=== PATIENT | male | born 1950 | race Caucasian/White ===

== ENCOUNTER 2025-09-30 23:55 | Inpatient (IN) | payer MEDICARE, MEDICAID ==
[~2025-09-30] VITALS: Ht 152.4 cm; Wt 83.5 kg
[~2025-09-30 23:55] MED LIST: AMLO10TA80 PO; ASPI-1073 PO; ATOR-388 PO; BENA40TA91 PO; CLON0.1T PO; HYDR25TA PO; LEVO50TA8 PO; METF-416 PO; METO-539 PO
[2025-10-01] VITALS (72 sets, daily range): BP systolic 45–135; BP diastolic 36–76; PULSE 61–133; RESP 0–21; TEMP 36–37.8; O2SAT 100
[2025-10-01] MEDS: LORAZEPAM 2MG/ML UD SYRINGE IM NR (00:10)
[2025-10-01] MEDS: MIDAZOLAM HCL 5 MG/ML VIAL IV ONE (00:27)
[2025-10-01] MEDS: MIDAZOLAM HCL 2 MG/2 ML VIAL IV NR (00:29)
[2025-10-01] MEDS: DIPHENHYDRAMINE 50MG/ML VIAL IV ONE (00:31)
[2025-10-01] MEDS: MIDAZOLAM HCL 2 MG/2 ML VIAL IV ONE ×2 (00:44→01:26)
[2025-10-01 00:49] LABS: BASOPHILS % 0.8 % (0.0-2.0); EOSINOPHILS % 1.8 % (0.0-5.0); HEMATOCRIT. 31.6 % (42.0-52.0); HEMOGLOBIN. 10.6 g/dL (14.0-18.0); LYMPHOCYTES % 39.0 % (20.0-50.0); MEAN PLATELET VOLUME 7.6 fl (7.4-10.4); MONOCYTES % 6.7 % (2.0-8.0); NEUTROPHILS % 51.7 % (40.0-76.0); PLATELET 422 x1000/uL (130-400); RED BLOOD CELL COUNT 3.75 mill/uL (4.7-6.1); RED CELL DISTRIBUTION WIDTH 13.7 % (11.6-14.6)
[2025-10-01 01:05] LABS: INR 1.0
[2025-10-01 01:12] LABS: CREATININE 2.0 mg/dL (0.6-1.3)
[2025-10-01 01:13] LABS: ETHANOL BLOOD < 10 mg/dL (<10); UREA NITROGEN BLOOD 31 mg/dL (9-23)
[2025-10-01 01:14] LABS: ASPARTATE AMINOTRANSFERASE 20 IU/L (<34); BILIRUBIN DIRECT < 0.1 mg/dL (<=3.0); PROTEIN TOTAL 7.1 g/dL (6.0-8.3)
[2025-10-01 01:15] LABS: BILIRUBIN TOTAL 0.2 mg/dL (0.1-1.0)
[2025-10-01] MEDS: HALOPERIDOL LACTATE 5MG/ML VIAL IM ONE (01:26)
[2025-10-01] MEDS ORDERED: DEXMEDETOMIDINE 100 ML IV PRN (01:45)
[2025-10-01] MEDS: DEXMEDETOMIDINE 100 ML IV PRN (02:17)
[2025-10-01] MEDS: ETOMIDATE 2MG/ML 10ML VIAL IV ONE (02:40)
[2025-10-01] MEDS: ROCURONIUM BROMIDE 10MG/ML VIAL 5ML IV ONE (02:41)
[2025-10-01] MEDS ORDERED: FENTANYL 2500MCG/250ML PMX 250 ML IV SCH (02:45)
[2025-10-01] MEDS: SODIUM CHLORIDE 0.9% 1,000 ML IV ONE ×2 (02:46→11:43)
[2025-10-01] MEDS: PROPOFOL 10MG/ML 100ML 100 ML IV SCH (03:02)
[2025-10-01] MEDS: SODIUM CHLORIDE 0.9% (SEPSIS BOLUS) IV ONE (03:05)
[2025-10-01] MEDS: PIPERACILLIN/TAZO 3.375G/50ML 50 ML IV ONE (03:18)
[2025-10-01] MEDS: NICARDIPINE 40MG/200ML PREMIX 200 ML IV PRN (03:25)
[2025-10-01 03:35] LABS: CLARITY URINE CLEAR (CLEAR); COLOR URINE YELLOW (YELLOW); GLUCOSE URINE 2+ (NEGATIVE); KETONES URINE NEGATIVE (NEGATIVE); LEUKOCYTE ESTERASE URINE NEGATIVE (NEGATIVE); NITRITE URINE NEGATIVE (NEGATIVE); OCCULT BLOOD URINE 1+ (NEGATIVE); PH URINE 5.5 (4.5-8.0); PROTEIN URINE 3+ (NEGATIVE); SPECIFIC GRAVITY URINE 1.011 (1.005-1.030); UROBILINOGEN URINE 0.2 E.U./dL (0.2-1.0)
[2025-10-01 03:46] LABS: TROPONIN I HIGH SENSITIVITY 53 ng/L (3.0-53)
[2025-10-01 03:48] LABS: *AMPHETAMINES SCREEN URINE NEGATIVE (NEGATIVE)
[2025-10-01 03:49] LABS: *BARBITURATES SCREEN URINE NEGATIVE (NEGATIVE); *BENZODIAZEPINES SCREEN URINE PRESUMPTIVE POSITIVE (NEGATIVE); *COCAINE SCREEN URINE NEGATIVE (NEGATIVE); METHADONE URINE SCREEN NEGATIVE (NEGATIVE); OPIATES URINE SCREEN NEGATIVE (NEGATIVE)
[2025-10-01 03:50] LABS: CANNABINOID URINE SCREEN NEGATIVE (NEGATIVE); ECSTASY MDMA SCREEN URINE NEGATIVE (NEGATIVE); PHENCYCLIDINE URINE SCREEN NEGATIVE (NEGATIVE)
[2025-10-01 04:03] LABS: BACTERIA URINE TRACE; SQUAMOUS EPITHELIAL CELL URINE RARE /lpf (RARE/1+); WBC URINE 0-2 /hpf (0-2)
[2025-10-01] MEDS: VANCOMYCIN 1G PREMIX 200 ML IV ONE (04:19)
[2025-10-01] MEDS: FENTANYL 2500MCG/250ML PMX 250 ML IV SCH (04:25)
[2025-10-01 04:28] LABS: BG BASE EXCESS -9.0 mmol/L (-2.0-3.0); BG FRACTION INSPIRED OXYGEN 60; BG HCO3 ACT 18.4 mmol/L (21.0-28.0); BG PCO2 45.2 mmHg (35.0-48.0); BG PEEP (cmH2O) 5.0 cmH2O; BG PH 7.228 (7.350-7.450); BG PO2 266.4 mmHg (83.0-108.0); BG SAMPLE SITE LEFT RADIAL; BG TIDAL VOLUME(mL) 475.0 mL; BG TOTAL HEMOGLOBIN 0.0 g/dL (13.5-17.5); BG VENT MODE VENT - AC; BG VENT RATE 16.0 set
[2025-10-01] MEDS ORDERED: ACETAMINOPHEN 325MG TABLET PO PRN (04:30)
[2025-10-01] MEDS ORDERED: DOCUSATE SODIUM 100MG CAPSULE PO PRN (04:30)
[2025-10-01] MEDS ORDERED: FENTANYL 2500MCG/250ML PMX 250 ML IV PRN (04:30)
[2025-10-01] MEDS ORDERED: ONDANSETRON HCL 4MG/2ML INJ IV PRN (04:30)
[2025-10-01] MEDS ORDERED: DEXTROSE 50% WATER 50ML SYRINGE IV PRN ×2 (04:30→13:00)
[2025-10-01] MEDS ORDERED: MAGNESIUM/ALUMINUM HYDROXIDE/SIMETHICONE 30ML UDC PO PRN (04:30)
[2025-10-01] MEDS ORDERED: NICARDIPINE 40MG/200ML PREMIX 200 ML IV PRN (04:30)
[2025-10-01 05:25] LABS: TROPONIN I HIGH SENSITIVITY 238 ng/L (3.0-53)
[2025-10-01] MEDS ORDERED: MIDAZOLAM 100MG/100ML PMX 100 ML IV PRN (05:30)
[2025-10-01] MEDS: BLOOD SUGAR DIAGNOSTIC STRIP TEST SCH ×2 (06:00→17:18)
[2025-10-01] MEDS ORDERED: IOHEXOL-350 100 ML BOTTLE ONE (06:50)
[2025-10-01] MEDS ORDERED: METR-167 MT (06:52)
[2025-10-01] MEDS ORDERED: HYDR25TA78 PO (06:52)
[2025-10-01] MEDS ORDERED: OMEP20CA14 MT (06:52)
[2025-10-01] MEDS ORDERED: VALS160T28 PO (06:52)
[2025-10-01] MEDS ORDERED: EMPA10TA PO (06:52)
[2025-10-01] MEDS ORDERED: BISM262O PO (06:52)
[2025-10-01] MEDS ORDERED: TETR-65 PO (06:52)
[2025-10-01] MEDS: MAGNESIUM 2 G PREMIX 50 ML IV NR (08:14)
[2025-10-01 08:33] LABS: INFLUENZA TYPE A Presumptive Negative (Pres. Neg.); INFLUENZA TYPE B Presumptive Negative (Pres. Neg.); RESPIRATORY SYNCYTIAL VIRUS Not Detected (Not Detectd)
[2025-10-01] MEDS ORDERED: BENZ100C86 MT (08:36)
[2025-10-01] MEDS: LEVETIRACETAM 1000MG PREMIX 100 ML IV SCH (08:55)
[2025-10-01] MEDS: PANTOPRAZOLE SODIUM 40 MG/VIAL IV SCH (08:55)
[2025-10-01] MEDS: ENOXAPARIN 30MG/0.3ML SYR SUBCUT SCH (08:55)
[2025-10-01] MEDS: IPRATROPIUM/ALBUTEROL 0.5-3(2.5)MG/3ML NEB HHN PRN (09:58)
[2025-10-01] MEDS ORDERED: SODIUM CHLORIDE 0.9% 500 ML IV NR ×2 (10:00→11:00)
[2025-10-01 10:22] LABS: BG BASE EXCESS -6.2 mmol/L (-2.0-3.0); BG CARBOXYHEMOGLOBIN 0.3 % (0.5-1.5); BG DEOXYHEMOGLOBIN 0.7 % (0.0-5.0); BG FRACTION INSPIRED OXYGEN 60; BG HCO3 ACT 17.4 mmol/L (21.0-28.0); BG METHEMOGLOBIN 0.3 % (0.5-1.5); BG OXYGEN SATURATION 99.3 % (94.0-98.0); BG OXYHEMOGLOBIN 98.7 % (94.0-98.0); BG PCO2 28.0 mmHg (35.0-48.0); BG PEEP (cmH2O) 5.0 cmH2O; BG PH 7.411 (7.350-7.450); BG PO2 233.0 mmHg (83.0-108.0); BG SAMPLE SITE RIGHT RADIAL; BG TIDAL VOLUME(mL) 475.0 mL; BG TOTAL HEMOGLOBIN 9.6 g/dL (13.5-17.5); BG VENT MODE VENT - AC; BG VENT RATE 16.0 set
[2025-10-01] MEDS: PIPERACILLIN/TAZO 3.375G/50ML 50 ML IV SCH (10:32)
[2025-10-01] MEDS: LEVETIRACETAM 500MG PREMIX 100 ML IV SCH ×2 (10:47→22:01)
[2025-10-01] MEDS: DEXT 5%/0.9% NACL 1,000 ML IV SCH (11:01)
[2025-10-01] MEDS: VANCOMYCIN 500MG/100ML IV SCH (11:11)
[2025-10-01 11:16] LABS: PLATELET 311 x1000/uL (130-400); RED BLOOD CELL COUNT 3.25 mill/uL (4.7-6.1); RED CELL DISTRIBUTION WIDTH 13.9 % (11.6-14.6)
[2025-10-01 11:27] LABS: CREATININE 2.1 mg/dL (0.6-1.3); UREA NITROGEN BLOOD 32.0 mg/dL (9-23)
[2025-10-01 11:43] LABS: TROPONIN I HIGH SENSITIVITY 3173 ng/L (3.0-53)
[2025-10-01] MEDS: INSULIN LISPRO 100 UNITS/ML SUBCUT SCH (13:07)
[2025-10-01 16:12] LABS: CREATINE KINASE MB FRACTION 10.2 ng/mL (0.5-3.6)
[2025-10-01] MEDS: PROPOFOL 10MG/ML 100ML 100 ML IV PRN (16:22)
[2025-10-01 16:43] LABS: FOLIC ACID (FOLATE) SERUM 12.18 ng/mL (>5.38)
[2025-10-01 16:44] LABS: TROPONIN I HIGH SENSITIVITY 4559 ng/L (3.0-53)
[2025-10-01 16:45] LABS: VITAMIN B12 SERUM 257 pg/mL (211-911)
[2025-10-01] MEDS: TETRACYCLINE HCL 250MG CAPSULE PO SCH (21:00)
[2025-10-01] MEDS: METRONIDAZOLE 500MG TABLET PO SCH (21:00)
[2025-10-02] VITALS (104 sets, daily range): BP systolic 87–158; BP diastolic 48–135; PULSE 59–110; RESP 0–31; TEMP 36.4–36.9; O2SAT 94–100
[2025-10-02 05:36] LABS: CREATININE 2.4 mg/dL (0.6-1.3); TRIGLYCERIDE 258.0 mg/dL (0-150); UREA NITROGEN BLOOD 26.0 mg/dL (9-23)
[2025-10-02 05:37] LABS: LDL CHOLESTEROL 100.0 mg/dL (5-100)
[2025-10-02 05:39] LABS: T4 FREE 1.23 ng/dL (0.89-1.76)
[2025-10-02 05:46] LABS: C REACTIVE PROTEIN HIGH SENS 40.87 mg/l (<1.00)
[2025-10-02] MEDS: PROPOFOL 10MG/ML 100ML 100 ML IV PRN (05:58)
[2025-10-02] MEDS ORDERED: VANCOMYCIN 750MG/150ML (BAXTER) IV SCH (06:00)
[2025-10-02 06:05] LABS: BASOPHILS % 0.5 % (0.0-2.0); EOSINOPHILS % 0.4 % (0.0-5.0); HEMATOCRIT. 27.8 % (42.0-52.0); HEMOGLOBIN. 9.3 g/dL (14.0-18.0); LYMPHOCYTES % 12.8 % (20.0-50.0); MEAN PLATELET VOLUME 7.8 fl (7.4-10.4); MONOCYTES % 9.3 % (2.0-8.0); NEUTROPHILS % 77.0 % (40.0-76.0); PLATELET 310 x1000/uL (130-400); RED BLOOD CELL COUNT 3.16 mill/uL (4.7-6.1); RED CELL DISTRIBUTION WIDTH 14.2 % (11.6-14.6); TROPONIN I HIGH SENSITIVITY 2693 ng/L (3.0-53)
[2025-10-02 08:38] LABS: BG BASE EXCESS -7.0 mmol/L (-2.0-3.0); BG CARBOXYHEMOGLOBIN 0.3 % (0.5-1.5); BG DEOXYHEMOGLOBIN 1.0 % (0.0-5.0); BG FRACTION INSPIRED OXYGEN 50; BG HCO3 ACT 18.2 mmol/L (21.0-28.0); BG METHEMOGLOBIN 0.3 % (0.5-1.5); BG OXYGEN SATURATION 99.0 % (94.0-98.0); BG OXYHEMOGLOBIN 98.4 % (94.0-98.0); BG PCO2 35.5 mmHg (35.0-48.0); BG PEEP (cmH2O) 5.0 cmH2O; BG PH 7.328 (7.350-7.450); BG PO2 222.8 mmHg (83.0-108.0); BG SAMPLE SITE RIGHT RADIAL; BG TIDAL VOLUME(mL) 450.0 mL; BG TOTAL HEMOGLOBIN 10.1 g/dL (13.5-17.5); BG VENT MODE VENT - AC; BG VENT RATE 16.0 set
[2025-10-02 09:49] LABS: ERYTHROCYTE SEDIMENTATION RATE 25 mm/hr (0-20)
[2025-10-02 09:50] LABS: PHOSPHORUS 4.1 mg/dL (2.5-4.9)
[2025-10-02] MEDS ORDERED: VANCOMYCIN 750MG PREMIX 150 ML IV SCH (12:00)
[2025-10-02 13:13] LABS: BG BASE EXCESS -6.7 mmol/L (-2.0-3.0); BG CARBOXYHEMOGLOBIN 0.8 % (0.5-1.5); BG DEOXYHEMOGLOBIN 1.5 % (0.0-5.0); BG FRACTION INSPIRED OXYGEN 30; BG HCO3 ACT 18.6 mmol/L (21.0-28.0); BG METHEMOGLOBIN 0.3 % (0.5-1.5); BG OXYGEN SATURATION 98.5 % (94.0-98.0); BG OXYHEMOGLOBIN 97.4 % (94.0-98.0); BG PCO2 36.4 mmHg (35.0-48.0); BG PEEP (cmH2O) 5.0 cmH2O; BG PH 7.327 (7.350-7.450); BG PO2 122.1 mmHg (83.0-108.0); BG SAMPLE SITE RIGHT RADIAL; BG TOTAL HEMOGLOBIN 10.3 g/dL (13.5-17.5); BG VENT MODE VENT - CPAP
[2025-10-02] MEDS: LOSARTAN 25 MG TABLET PO SCH (14:44)
[2025-10-02] MEDS: ASPIRIN 81MG TABLET PO SCH (16:55)
[2025-10-02] MEDS: ACETAMINOPHEN 325MG TABLET PO PRN (16:56)
[2025-10-02] MEDS ORDERED: PIPERACILLIN/TAZO 3.375G/50ML 50 ML IV SCH (21:00)
[2025-10-02] MEDS: METOPROLOL TARTRATE 25MG TABLET PO SCH (21:18)
[2025-10-03] VITALS (24 sets, daily range): BP systolic 109–191; BP diastolic 50–83; PULSE 59–95; RESP 11–25; TEMP 36.3–37.1; O2SAT 96–100
[2025-10-03] MEDS: CLONIDINE 0.1MG TABLET PO PRN (00:51)
[2025-10-03 05:52] LABS: PLATELET 314 x1000/uL (130-400); RED BLOOD CELL COUNT 3.17 mill/uL (4.7-6.1); RED CELL DISTRIBUTION WIDTH 14.2 % (11.6-14.6)
[2025-10-03 07:03] LABS: CREATININE 2.3 mg/dL (0.6-1.3)
[2025-10-03 07:04] LABS: TRIGLYCERIDE 156 mg/dL (0-150); UREA NITROGEN BLOOD 28 mg/dL (9-23)
[2025-10-03 07:06] LABS: PHOSPHORUS 4.1 mg/dL (2.5-4.9)
[2025-10-03] MEDS: LOSARTAN 50 MG TABLET PO SCH (09:22)
[2025-10-03] MEDS: METOPROLOL TARTRATE 50MG TABLET PO SCH (09:23)
[2025-10-03] MEDS: HYDRALAZINE 20MG/ML VIAL IV PRN (09:28)
[2025-10-03] MEDS: DEXT 5% WATER 500 ML IV ONE (15:21)
[2025-10-03] MEDS: GUAIFENESIN 200MG/10ML SUGAR FREE UDC PO PRN (17:54)
[2025-10-03] MEDS: HYDRALAZINE HCL 25MG TABLET PO SCH (20:57)
[2025-10-04] VITALS (7 sets, daily range): BP systolic 131–171; BP diastolic 59–85; PULSE 57–87; RESP 14–20; TEMP 36.5–37.1; O2SAT 96–99
[2025-10-04 05:49] LABS: CREATININE 2.4 mg/dL (0.6-1.3); UREA NITROGEN BLOOD 37 mg/dL (9-23)
[2025-10-04 05:51] LABS: PHOSPHORUS 4.2 mg/dL (2.5-4.9)
[2025-10-04 06:33] LABS: PLATELET 298 x1000/uL (130-400); RED BLOOD CELL COUNT 3.00 mill/uL (4.7-6.1); RED CELL DISTRIBUTION WIDTH 14.3 % (11.6-14.6)
[2025-10-04] MEDS: HYDRALAZINE HCL 25MG TABLET PO SCH (17:36)
[2025-10-04] MEDS: CLONIDINE 0.1MG TABLET PO SCH (21:14)
[2025-10-05] VITALS: BP 143/64; PULSE 61; RESP 15; TEMP 36.8; O2SAT 98
[2025-10-05 04:00] VITALS: BP 159/66; PULSE 71; RESP 18; TEMP 36.9; O2SAT 96
[2025-10-05] MEDS: LEVOTHYROXINE SODIUM 50MCG TABLET PO SCH (06:50)
[2025-10-05 07:25] LABS: BASOPHILS % 0.7 % (0.0-2.0); EOSINOPHILS % 1.7 % (0.0-5.0); HEMATOCRIT. 25.4 % (42.0-52.0); HEMOGLOBIN. 8.5 g/dL (14.0-18.0); LYMPHOCYTES % 15.3 % (20.0-50.0); MEAN PLATELET VOLUME 8.1 fl (7.4-10.4); MONOCYTES % 9.4 % (2.0-8.0); NEUTROPHILS % 72.9 % (40.0-76.0); PLATELET 307 x1000/uL (130-400); RED BLOOD CELL COUNT 2.98 mill/uL (4.7-6.1); RED CELL DISTRIBUTION WIDTH 13.9 % (11.6-14.6)
[2025-10-05 07:47] LABS: CREATININE 2.5 mg/dL (0.6-1.3)
[2025-10-05 07:48] LABS: UREA NITROGEN BLOOD 46 mg/dL (9-23)
[2025-10-05 07:51] LABS: PHOSPHORUS 4.7 mg/dL (2.5-4.9)
[2025-10-05 08:00] VITALS: BP 169/67; PULSE 89; RESP 20; TEMP 36.6; O2SAT 98
[2025-10-05] MEDS: FAMOTIDINE 20MG/2ML VIAL IV SCH (09:04)
[2025-10-05] MEDS: AMLODIPINE 10MG TABLET PO SCH (09:05)
[2025-10-05] MEDS: MAGNESIUM 2 G PREMIX 50 ML IV ONE (10:02)
[2025-10-05 12:00] VITALS: BP 157/59; PULSE 66; RESP 20; TEMP 36.6; O2SAT 99
[2025-10-05 16:00] VITALS: BP 165/59; PULSE 67; RESP 18; TEMP 36.7; O2SAT 99
[2025-10-05] MEDS: CLONIDINE 0.2MG TABLET PO SCH (16:22)
[2025-10-05] MEDS: HYDRALAZINE HCL 50MG TABLET PO SCH (17:56)
[2025-10-05 20:00] VITALS: BP 142/48; PULSE 67; RESP 18; TEMP 36.3; O2SAT 98
[2025-10-05] MEDS: LEVETIRACETAM 500MG TABLET PO SCH (20:17)
[2025-10-06] VITALS: BP 137/46; PULSE 55; RESP 17; TEMP 36.2; O2SAT 99
[2025-10-06 04:00] VITALS: BP 146/53; PULSE 59; RESP 18; TEMP 36.5; O2SAT 100
[2025-10-06 07:37] LABS: CREATININE 2.4 mg/dL (0.6-1.3)
[2025-10-06 07:38] LABS: UREA NITROGEN BLOOD 54 mg/dL (9-23)
[2025-10-06 07:40] LABS: PHOSPHORUS 5.3 mg/dL (2.5-4.9)
[2025-10-06 08:00] VITALS: BP 166/52; PULSE 57; RESP 18; TEMP 36.8; O2SAT 98
[2025-10-06 08:02] LABS: BASOPHILS % 0.7 % (0.0-2.0); EOSINOPHILS % 4.0 % (0.0-5.0); HEMATOCRIT. 25.9 % (42.0-52.0); HEMOGLOBIN. 8.8 g/dL (14.0-18.0); LYMPHOCYTES % 17.5 % (20.0-50.0); MEAN PLATELET VOLUME 8.3 fl (7.4-10.4); MONOCYTES % 9.9 % (2.0-8.0); NEUTROPHILS % 67.9 % (40.0-76.0); PLATELET 311 x1000/uL (130-400); RED BLOOD CELL COUNT 3.04 mill/uL (4.7-6.1); RED CELL DISTRIBUTION WIDTH 13.9 % (11.6-14.6)
[2025-10-06 08:22] LABS: HEPATITIS C AB NON REACTIVE (Neg) (Negative)
[2025-10-06 12:00] VITALS: BP 140/54; PULSE 51; RESP 18; TEMP 36.3; O2SAT 99
[2025-10-06] MEDS: CALCIUM ACETATE 667MG CAPSULE PO NR (12:35)
[2025-10-06] MEDS: TAMSULOSIN HCL 0.4MG SR CAPSULE PO NR (12:37)
[2025-10-06] MEDS: EMPAGLIFLOZIN 10MG TABLET PO SCH (14:30)
[2025-10-06] MEDS: FUROSEMIDE 20MG/2ML VIAL IVP SCH (15:56)
[2025-10-06 16:00] VITALS: BP 133/53; PULSE 57; RESP 18; TEMP 36.1; O2SAT 98
[2025-10-06 20:00] VITALS: BP 118/41; PULSE 53; RESP 18; TEMP 36.1; O2SAT 99
[2025-10-07] VITALS: BP 110/44; PULSE 60; RESP 16; TEMP 36.3; O2SAT 99
[2025-10-07 04:00] VITALS: BP 132/55; PULSE 60; RESP 16; TEMP 36.1; O2SAT 99
[2025-10-07 06:41] LABS: BASOPHILS % 0.7 % (0.0-2.0); EOSINOPHILS % 4.4 % (0.0-5.0); HEMATOCRIT. 26.7 % (42.0-52.0); HEMOGLOBIN. 9.1 g/dL (14.0-18.0); LYMPHOCYTES % 17.1 % (20.0-50.0); MEAN PLATELET VOLUME 8.3 fl (7.4-10.4); MONOCYTES % 11.4 % (2.0-8.0); NEUTROPHILS % 66.4 % (40.0-76.0); PLATELET 318 x1000/uL (130-400); RED BLOOD CELL COUNT 3.13 mill/uL (4.7-6.1); RED CELL DISTRIBUTION WIDTH 14.1 % (11.6-14.6)
[2025-10-07 07:32] LABS: CREATININE 2.5 mg/dL (0.6-1.3)
[2025-10-07 07:33] LABS: UREA NITROGEN BLOOD 51.0 mg/dL (9-23)
[2025-10-07 08:00] VITALS: BP 172/60; PULSE 90; RESP 18; TEMP 36.3; O2SAT 100
[2025-10-07 12:00] VITALS: BP 132/54; PULSE 58; RESP 18; TEMP 36.3; O2SAT 100
[2025-10-07] MEDS: HYDRALAZINE HCL 100MG TABLET PO SCH (12:30)
[2025-10-07 16:00] VITALS: BP 147/61; PULSE 53; RESP 17; TEMP 36.3; O2SAT 99
[2025-10-07] MEDS: SODIUM CHLORIDE 0.9% 500 ML IV ONE (18:02)
[2025-10-07] MEDS: SODIUM BICARBONATE 650MG TABLET PO SCH (18:13)
[2025-10-07] MEDS: SODIUM CHLORIDE 0.45% 500 ML IV ONE (18:15)
[2025-10-07 20:00] VITALS: BP 132/88; PULSE 57; RESP 16; TEMP 36.5; O2SAT 99
[2025-10-08] VITALS: BP 129/47; PULSE 54; RESP 16; TEMP 36.3; O2SAT 97
[2025-10-08 04:00] VITALS: BP 145/54; PULSE 63; RESP 16; TEMP 37; O2SAT 98
[2025-10-08 08:00] VITALS: BP 167/60; PULSE 65; RESP 15; TEMP 36.4; O2SAT 98
[2025-10-08 10:33] LABS: CREATININE 2.5 mg/dL (0.6-1.3); UREA NITROGEN BLOOD 63.0 mg/dL (9-23)
[2025-10-08] MEDS ORDERED: KEPP500 PO (11:28)
[2025-10-08 12:00] VITALS: BP 118/61; PULSE 53; RESP 20; TEMP 36.6; O2SAT 98
[2025-10-08] MEDS: SODIUM CHLORIDE 0.9% 1,000 ML IV SCH (13:45)
[2025-10-08 15:19] VITALS: BP 149/64; PULSE 57; RESP 18; TEMP 97.4
[2025-10-08 17:07] LABS: CHLORIDE URINE RANDOM 59.0 mEq/L; POTASSIUM URINE RANDOM 13.5 mEq/L; SODIUM URINE RANDOM 65.0 mEq/L
[2025-10-08 17:12] LABS: PROTEIN URINE RANDOM 50.0 mg/dL
[2025-10-08 17:14] LABS: CREATININE URINE RANDOM 38.7 mg/dL
[2025-10-08 17:15] LABS: UREA NITROGEN URINE RANDOM 539.0 mg/dL
== END 2025-10-08 15:53 | disposition home or self-care (01) | DRG 871 ==
LOC: ER 23:55 → CVICU 10-01 04:13 → EDBEDREQSVC 10-01 04:29 → EDBEDREQTM 10-01 04:29 → EDBEDREQ 10-01 04:29 → ENRESERV 10-01 04:36 → 5EST 10-03 01:17 → 5WST 10-05 00:10
PROVIDERS: ADMIT Family Medicine Adult Medicine; ATTEND Family Medicine Adult Medicine
PROC: 5A1945Z Respiratory Ventilation, 24-96 Consecutive Hours (ICD-10-PCS; principal; 2025-10-01)
PROC: 0BH17EZ Insertion of Endotracheal Airway into Trachea, Via Natural or Artificial Opening (ICD-10-PCS; 2025-10-01)
DX: A41.9 Sepsis, unspecified organism (principal); G93.41 Metabolic encephalopathy; I21.A1 Myocardial infarction type 2; J96.01 Acute respiratory failure with hypoxia; J18.9 Pneumonia, unspecified organism; K27.4 Chronic or unspecified peptic ulcer, site unspecified, with hemorrhage; I16.1 Hypertensive emergency; I67.4 Hypertensive encephalopathy; E87.20 Acidosis, unspecified; N17.9 Acute kidney failure, unspecified; I13.0 Hypertensive heart and chronic kidney disease with heart failure and stage 1 through stage 4 chronic kidney disease, or unspecified chronic kidney disease; E11.22 Type 2 diabetes mellitus with diabetic chronic kidney disease; D64.9 Anemia, unspecified; N18.30 Chronic kidney disease, stage 3 unspecified; E03.9 Hypothyroidism, unspecified; R56.9 Unspecified convulsions; E87.1 Hypo-osmolality and hyponatremia; E83.42 Hypomagnesemia; E11.649 Type 2 diabetes mellitus with hypoglycemia without coma; K52.9 Noninfective gastroenteritis and colitis, unspecified; E87.6 Hypokalemia; R32 Unspecified urinary incontinence; E78.00 Pure hypercholesterolemia, unspecified; I1A.0 Resistant hypertension; Z79.82 Long term (current) use of aspirin; Z79.899 Other long term (current) drug therapy
CPT/HCPCS: 31500; 31720; 36415; 36600; 70496; 70498; 70551; 71045; 76700; 80048; 80061; 80076; 80202; 80305; 80320; 81003; 82088; 82140; 82164; 82375; 82436; 82550; 82553; 82570; 82607; 82728; 82746; 82805; 82962; 83036; 83540; 83550; 83605; 83735; 83880; 84100; 84133; 84145; 84156; 84244; 84300; 84439; 84443; 84478; 84484; 84540; 85025; 85027; 85044; 85379; 85651; 86141; 86705; 87070; 87340; 87420; 87426; 87804; 93005; 93306; 94002; 94003; 94070; 94640; 94664; 96365; 96372; 96375; 97161; 97166; 99291; 99292; A4606; J0360; J1200; J1308; J1650; J1815; J1938; J1953; J2060; J2250; J2470; J2543; J2704; J3010; J3373; J3475; J3490; J7030; J7042; Q9967; G0480